=== PATIENT | female | born 1965 ===

== ENCOUNTER 2020-03-11 13:24 | Inpatient (IN) ==
[2020-03-11] MEDS ORDERED: MEROPENEM 1,000 MG in SODIUM CHLORIDE 0.9% 100 ML IV STA (13:59)
[2020-03-11] MEDS ORDERED: DEXTROSE 50% 25 GM/50 ML VIAL IV PRN ×2 (14:04)
[2020-03-11] MEDS ORDERED: ONDANSETRON 4 MG/2 ML VIAL IV PRN (14:04)
[2020-03-11] MEDS ORDERED: traZODone 50 MG TABLET PO PRN (14:04)
[2020-03-11] MEDS ORDERED: ZALEPLON 5 MG CAPSULE PO PRN (14:04)
[2020-03-11] MEDS ORDERED: GLUCAGON 1 MG VIAL IM PRN (14:04)
[2020-03-11] MEDS ORDERED: ACETAMINOPHEN 325 MG TABLET PO PRN (14:04)
[2020-03-11] MEDS ORDERED: PIPERACILLIN/TAZOBACTAM 2,250 MG in SODIUM CHLORIDE 0.9% 100 ML IV STA (14:11)
[2020-03-11] MEDS ORDERED: hydrALAZINE 20 MG/1 ML VIAL IV PRN (15:11)
[2020-03-11] MEDS ORDERED: SIMETHICONE CHEW 125 MG TABLET PO PRN (15:11)
[2020-03-11] MEDS ORDERED: CALCIUM CARBONATE CHEW 500 MG TABLET PO PRN (15:11)
[2020-03-11] MEDS ORDERED: NICOTINE 21 MG/24 HR PATCH TRANSDERM PRN (15:11)
[2020-03-11] MEDS ORDERED: BISACODYL 5 MG TABLET PO PRN (15:11)
[2020-03-11] MEDS ORDERED: LACTULOSE 20 GM/30 ML UDCUP PO PRN (15:11)
[2020-03-11] MEDS ORDERED: DOCUSATE SODIUM 100 MG CAPSULE PO PRN (15:11)
[2020-03-11] MEDS ORDERED: guaiFENesin/DM ER 600-30 MG TABLET PO PRN (15:11)
[2020-03-11] MEDS ORDERED: ALUMINUM/MAGNES/SIMETH MAX STR 30 ML UDCUP PO PRN (15:11)
[2020-03-11] MEDS ORDERED: VANCOMYCIN INJ 1,000 MG in SODIUM CHLORIDE 0.9% 250 ML IV SCH (18:00)
[2020-03-11] MEDS ORDERED: VANCOMYCIN 1,000 MG VIAL ONE (18:06)
[2020-03-11 20:12] LABS: Bacteria,Urine Occasional /HPF (Few); Bilirubin,Urine Negative (Negative); Blood, Urine Negative (Negative); Glucose,Urine (UA) Negative (Negative); Ketones,Urine Negative (Negative); Mucus,Urine Occasional /LPF (Occasional); Nitrite,Urine Negative (Negative); Protein,Urine Negative; RBC,Urine 1 /HPF (0-4); Squamous Epithelial Cell,Urine Occasional /HPF (0-10); Urine Appearance CLEAR (Clear); Urine Color Yellow (Yellow); Urine Specific Gravity 1.013 (1.001-1.035); WBC,Urine 2 /HPF (0-6)
[2020-03-11] MEDS: INSULIN REGULAR 100 UNIT/ML SUBCUT SCH ×2 (20:48→22:02)
[2020-03-11] MEDS ORDERED: ENOXAPARIN 40 MG/0.4 ML SYRINGE SUBCUT SCH (21:00)
[2020-03-11] MEDS: PIPERACILLIN/TAZOBACTAM 3,375 MG in SODIUM CHLORIDE 0.9% 100 ML IV SCH (22:37)
[2020-03-12] MEDS: VANCOMYCIN INJ 1,250 MG in SODIUM CHLORIDE 0.9% 250 ML IV SCH ×2 (02:45→14:45)
[2020-03-12 06:05] LABS: Basophils % 0.4 % (0.0-0.8); Eosinophils # 0.2 10*3/uL (0.0-0.87); Eosinophils % 3.9 % (0.00-10.9); Hematocrit 31.9 VOL% (35.7-47.0); Hemoglobin 10.9 GM/DL (12.0-16.0); Immature Granulocytes % 0.4 %; Immature Granulocytes Absolute 0.02 #; Lymphocytes # 1.9 10*3/uL (1.4-4.0); Lymphocytes % 36.2 % (21.3-54.2); Mean Corpuscular HGB Conc 34.2 GM/DL (32-36); Mean Corpuscular Volume 87.2 FL (87-102); Mean Platelet Volume 10.1 FL (9.6-12.0); Neutrophils % 51.1 % (38.7-73.9); Platelet Count 231 T/CUMM (130-400); Red Blood Count 3.66 MC/CUMM (3.8-5.5); Red Cell Distribution Width 12.1 % (9.3-17.3); White Blood Count 5.1 T/CUMM (4-12)
[2020-03-12 06:31] LABS: Eosinophils 6 % (0-10); Hypochromasia 1+; Lymphocytes 34 % (20-55); Microcytosis Slight; Platelet Estimate Adequate; Segmented Neutrophils 53 % (50-85); Total Cells Counted 100
[2020-03-12] MEDS: PIPERACILLIN/TAZOBACTAM 3,375 MG in SODIUM CHLORIDE 0.9% 100 ML IV SCH ×2 (06:34→20:09)
[2020-03-12 06:53] LABS: Albumin 2.4 G/DL (3.4-5.0); Bilirubin,Total 0.4 MG/DL (0.2-1.0); Calcium 8.4 MG/DL (8.5-10.1); Osmolality,Calculated 277.5 MOS/KG (273-304); Thyroid Stimulating Hormone 1.28 uIU/ml (0.358-3.74); Total Protein 7.5 G/DL (6.4-8.3)
[2020-03-12] MEDS: INSULIN REGULAR 100 UNIT/ML SUBCUT SCH ×4 (08:24→20:10)
[2020-03-12] MEDS ORDERED: PANTOPRAZOLE 40 MG TABLET PO SCH (09:00)
[2020-03-12 10:04] LABS: Risk Ratio 3.52; VLDL CHOLESTEROL 27.4 MG/DL
[2020-03-12] MEDS: diphenhydrAMINE CAP 25 MG CAPSULE PO PRN ×2 (11:46→20:18)
[2020-03-13] MEDS: VANCOMYCIN INJ 1,250 MG in SODIUM CHLORIDE 0.9% 250 ML IV SCH (02:51)
[2020-03-13 05:59] LABS: Basophils % 0.6 % (0.0-0.8); Eosinophils # 0.2 10*3/uL (0.0-0.87); Eosinophils % 3.1 % (0.00-10.9); Hematocrit 30.4 VOL% (35.7-47.0); Hemoglobin 10.2 GM/DL (12.0-16.0); Immature Granulocytes % 0.2 %; Immature Granulocytes Absolute 0.01 #; Lymphocytes # 2.1 10*3/uL (1.4-4.0); Lymphocytes % 39.5 % (21.3-54.2); Mean Corpuscular HGB Conc 33.6 GM/DL (32-36); Mean Corpuscular Volume 89.4 FL (87-102); Mean Platelet Volume 10.3 FL (9.6-12.0); Monocytes % 8.1 % (1.7-12.7); Neutrophils % 48.5 % (38.7-73.9); Platelet Count 222 T/CUMM (130-400); Red Cell Distribution Width 12.1 % (9.3-17.3); White Blood Count 5.2 T/CUMM (4-12)
[2020-03-13] MEDS ORDERED: LIDOCAINE 1% 20 ML VIAL ONE (06:15)
[2020-03-13 06:17] LABS: Albumin 2.3 G/DL (3.4-5.0); Bilirubin,Total 0.5 MG/DL (0.2-1.0); Calcium 8.6 MG/DL (8.5-10.1); Osmolality,Calculated 282.5 MOS/KG (273-304); Total Protein 7.3 G/DL (6.4-8.3)
[2020-03-13] MEDS ORDERED: MIDAZOLAM 2 MG/2 ML VIAL ONE (06:59)
[2020-03-13] MEDS ORDERED: LIDOCAINE 2% 5 ML VIAL ONE (06:59)
[2020-03-13] MEDS ORDERED: propofoL 200 MG/20 ML VIAL IV ONE (06:59)
[2020-03-13] MEDS ORDERED: fentaNYL 100 MCG/2 ML VIAL ONE (07:00)
[2020-03-13] MEDS: PIPERACILLIN/TAZOBACTAM 3,375 MG in SODIUM CHLORIDE 0.9% 100 ML IV SCH ×2 (07:17→14:43)
[2020-03-13 07:24] LABS: Band Neutrophils 1 % (0-10); Eosinophils 2 % (0-10); Hypochromasia 1+; Lymphocytes 32 % (20-55); Microcytosis 1+; Platelet Estimate Adequate; Segmented Neutrophils 56 % (50-85); Total Cells Counted 100
[2020-03-13] MEDS: INSULIN REGULAR 100 UNIT/ML SUBCUT SCH ×2 (07:33→11:22)
[2020-03-13 12:09] VITALS: BP 149/62
== END 2020-03-13 16:16 | disposition home health service (06) | DRG 240 ==
LOC: EDBD → EDUNIT# → N.ED 13:24 → N.EDINP 14:07 → N.5E 20:44
PROVIDERS: ADMIT Hospitalist; ATTEND Hospitalist